=== PATIENT | female | born 1990 | race Caucasian/White ===

== ENCOUNTER 2017-09-01 07:17 | Emergency (ER) | payer OTHER ==
--- NOTE | 2017-09-01 07:40 | ED ---
Laceration/Wound HPI - HPI Summary HPI Summary: YessicaF presents for suture removal today. She states she had the sutures placed 7 days ago in her right arm. She denies any fevers. She denies any spreading redness. She denies any pain. no bleeding. - History of Current Complaint Stated Complaint: STITCHES REMOVED Time Seen by Provider: 09/01/17 07:33 Pain Intensity: 0 - Allergy/Home Medications Allergies/Adverse Reactions: Allergies Allergy/AdvReac Type Severity Reaction Status Date / Time No Known Allergies Allergy Verified 09/01/17 07:19 PMH/Surg Hx/FS Hx/Imm Hx Endocrine/Hematology History: Denies: Hx Anticoagulant Therapy Cardiovascular History: Denies: Hx Myocardial Infarction - Immunization History Date of Tetanus Vaccine: 2016 Infectious Disease History: No Infectious Disease History: Denies: Traveled Outside the [place] in Last 30 Days - Family History Known Family History: Negative: Diabetes - Social History Alcohol Use: None Hx Substance Use: No Substance Use Type: Reports: None Smoking Status (MU): Never Smoked Tobacco Review of Systems Negative: Fever Negative: Chest Pain Negative: Shortness Of Breath Positive: Other - right arm suture removal All Other Systems Reviewed And Are Negative: Yes Physical Exam Triage Information Reviewed: Yes Vital Signs On Initial Exam: Initial Vitals Temp Pulse Resp BP Pulse Ox 98.3 F 79 16 116/68 100 09/01/17 07:19 09/01/17 07:19 09/01/17 07:19 09/01/17 07:19 09/01/17 07:19 Vital Signs Reviewed: Yes Appearance: Positive: Well-Appearing Skin: Positive: Warm, Dry, Other - 4cm laceration wellhealing without signs of dehisence or erythema with 7 suture in wound on right arm Head/Face: Positive: Normal Head/Face Inspection Eyes: Positive: Normal, Conjunctiva Clear Respiratory/Lung Sounds: Positive: Clear to Auscultation, Breath Sounds Present Cardiovascular: Positive: Normal, RRR Musculoskeletal: Positive: Strength/ROM Intact - right arm, Other - good pulses Neurological: Positive: Normal Psychiatric: Positive: Normal Diagnostics - Vital Signs Vital Signs Temp Pulse Resp BP Pulse Ox 09/01/17 07:19 98.3 F 79 16 116/68 100 - Laboratory Lab Statement: Any lab studies that have been ordered have been reviewed, and results considered in the medical decision making process. Laceration Repair Course/Dx - Course Course Of Treatment: 27F presents for suture removal today. She states she had the sutures placed 7 days ago. She denies any fevers. She denies any spreading redness. She denies any pain. no bleeding. Removed the 7 sutures from right arm. No signs of infection. Wound appears healing well. told place sunscreen and Neosporin on area. Patient understands agrees with plan. - Differential Dx Differental Diagnoses: Healing Wound, Laceration, Suture Removal - Clinical Impression Provider Diagnoses: Encounter for removal of sutures Discharge - Sign-Out/Discharge Documenting (check all that apply): Discharge - Discharge Plan Condition: Good Disposition: HOME Patient Education Materials: Stitches Removal (ED) Referrals: No Primary Care Phys,NOPCP [Primary Care Provider] - Additional Instructions: Keep clean Place neosporin on area Return to ED if develop any signs of infection or any new or worsening symptoms - Billing Disposition and Condition Condition: GOOD Disposition: HOME
[2017-09-01 08:01] VITALS: BP 106/56
== END 2017-09-01 07:54 | disposition home or self-care (01) ==
LOC: ED 07:17
DX: Z48.02 Encounter for removal of sutures (principal)
CPT/HCPCS: 99283